=== PATIENT | female | born 1990 | race Caucasian/White ===

== ENCOUNTER 2021-04-30 12:44 | Observation (INO) | payer MEDICAID, OTHER ==
[~2021-04-30] VITALS: Ht 160 cm; Wt 108.7 kg
--- NOTE | 2021-04-30 13:23 | ED Respiratory ---
General Chief Complaint: COVID19 Suspect/Confirmed Stated Complaint: SOB,COUGH,CP Source: patient Exam Limitations: no limitations History of Present Illness Date Seen by Provider: Apr 30, 2021 Time Seen by Provider: 13:12 Initial Comments This is a well-appearing 31-year-old female who presented to the ER with complaints of increasing shortness of breath. States that she developed symptoms approximately 3 weeks ago and was giving a steroid pack. States that she has since completed the steroid pack however her symptoms have persisted and over the last 3 to 4 days have worsened. Denies fever, chills, cough, chest pain, nausea, vomiting, diarrhea, abdominal pain. Did not receive COVID vaccine. Allergies and Home Medications Allergies Coded Allergies: No Known Drug Allergies (Unverified , 04/30/21) Patient Home Medication List Home Medication List Reviewed: Yes Review of Systems Review of Systems Constitutional: no symptoms reported EENTM: no symptoms reported Respiratory: see HPI Cardiovascular: no symptoms reported Gastrointestinal: no symptoms reported Genitourinary: no symptoms reported Musculoskeletal: no symptoms reported Skin: no symptoms reported Psychiatric/Neurological: No Symptoms Reported Hematologic/Lymphatic: No Symptoms Reported Immunological/Allergic: no symptoms reported Past Cccvebf-Pqilxv-Ftwphl Hx Patient Social History Tobacco Use?: Yes Tobacco type used: Cigarettes Smoking Status: Current Everyday Smoker Substance use?: No Alcohol Use?: Yes Alcohol Frequency: Once in a while Pt feels they are or have been: No Physical Exam Vital Signs - First Documented 04/30/21 12:54 Temp 36.3 Pulse 100 Resp 36 B/P (MAP) 195/119 (144) Pulse Ox 97 O2 Delivery Nasal Cannula O2 Flow Rate 2.00 Capillary Refill : Height: '" Weight: lbs. oz. kg; BMI Method: General Appearance: WD/WN, no apparent distress Eyes: Bilateral Eye Normal Inspection, Bilateral Eye PERRL, Bilateral Eye EOMI HEENT: PERRL/EOMI, TMs normal Neck: full range of motion, normal inspection Progress/Results/Core Measures Suspected Sepsis SIRS Temperature: Pulse: Respiratory Rate: Laboratory Tests 04/30/21 13:05: White Blood Count 9.7 Blood Pressure / Mean: Laboratory Tests 04/30/21 13:05: Creatinine 0.81, INR Comment 0.9, Platelet Count 208, Total Bilirubin 0.6 Results/Orders Lab Results Laboratory Tests Test 04/30/21 13:00 04/30/21 13:05 04/30/21 13:50 04/30/21 14:00 Range/Units SARS-CoV-2 RNA (RT-PCR) Not Detected Not Detecte White Blood Count 9.7 4.3-11.0 10^3/uL Red Blood Count 4.44 3.80-5.11 10^6/uL Hemoglobin 15.1 11.5-16.0 g/dL Hematocrit 44 35-52 % Mean Corpuscular Volume 99 80-99 fL Mean Corpuscular Hemoglobin 34 25-34 pg Mean Corpuscular Hemoglobin Concent 34 32-36 g/dL Red Cell Distribution Width 13.5 10.0-14.5 % Platelet Count 208 130-400 10^3/uL Mean Platelet Volume 10.6 9.0-12.2 fL Immature Granulocyte % (Auto) 0 % Neutrophils (%) (Auto) 65 42-75 % Lymphocytes (%) (Auto) 15 12-44 % Monocytes (%) (Auto) 6 0-12 % Eosinophils (%) (Auto) 13 H 0-10 % Basophils (%) (Auto) 1 0-10 % Neutrophils # (Auto) 6.3 1.8-7.8 10^3/uL Lymphocytes # (Auto) 1.4 1.0-4.0 10^3/uL Monocytes # (Auto) 0.6 0.0-1.0 10^3/uL Eosinophils # (Auto) 1.2 H 0.0-0.3 10^3/uL Basophils # (Auto) 0.1 0.0-0.1 10^3/uL Immature Granulocyte # (Auto) 0.0 0.0-0.1 10^3/uL Neutrophils % (Manual) 60 % Lymphocytes % (Manual) 17 % Monocytes % (Manual) 7 % Eosinophils % (Manual) 15 % Band Neutrophils 1 % Blood Morphology Comment NORMAL Prothrombin Time 12.8 12.2-14.7 SEC INR Comment 0.9 0.8-1.4 Activated Partial Thromboplast Time 27 24-35 SEC D-Dimer <= 0.27 0.00-0.49 UG/ML Sodium Level 140 135-145 MMOL/L Potassium Level 4.2 3.6-5.0 MMOL/L Chloride Level 104 98-107 MMOL/L Carbon Dioxide Level 24 21-32 MMOL/L Anion Gap 12 5-14 MMOL/L Blood Urea Nitrogen 8 7-18 MG/DL Creatinine 0.81 0.60-1.30 MG/DL Estimat Glomerular Filtration Rate 81 BUN/Creatinine Ratio 10 Glucose Level 98 70-105 MG/DL Calcium Level 9.5 8.5-10.1 MG/DL Corrected Calcium 9.3 8.5-10.1 MG/DL Total Bilirubin 0.6 0.1-1.0 MG/DL Aspartate Amino Transf (AST/SGOT) 33 5-34 U/L Alanine Aminotransferase (ALT/SGPT) 38 0-55 U/L Alkaline Phosphatase 89 40-136 U/L Myoglobin 42.7 10.0-92.0 NG/ML Troponin I < 0.028 <0.028 NG/ML B-Type Natriuretic Peptide < 10.0 <100.0 PG/ML Total Protein 7.7 6.4-8.2 GM/DL Albumin 4.3 3.2-4.5 GM/DL Procalcitonin 0.02 <0.10 NG/ML Serum Test, Qualitative NEGATIVE NEGATIVE Blood Gas Puncture Site RRAD Blood Gas Patient Temperature 36.3 Arterial Blood pH 7.36 L 7.37-7.43 Arterial Blood Partial Pressure CO2 49 H 35-45 MMHG Arterial Blood Partial Pressure O2 43 L 79-93 MMHG Arterial Blood HCO3 28 H 23-27 MMOL/L Arterial Blood Total CO2 29.0 21.0-31.0 MMOL/L Arterial Blood Oxygen Saturation 70 L 94-100 % Arterial Blood Base Excess 2.4 -2.5-2.5 MMOL/L Jesus Test POS Blood Gas Ventilator Setting NO Blood Gas Inspired Oxygen 2L Urine Color YELLOW Urine Clarity CLEAR Urine pH 6.5 5-9 Urine Specific [place] 1.010 L 1.016-1.022 Urine Protein NEGATIVE NEGATIVE Urine Glucose (UA) NEGATIVE NEGATIVE Urine Ketones NEGATIVE NEGATIVE Urine Nitrite NEGATIVE NEGATIVE Urine Bilirubin NEGATIVE NEGATIVE Urine Urobilinogen 0.2 < = 1.0 MG/DL Urine Leukocyte Esterase 2+ H NEGATIVE Urine RBC (Auto) NEGATIVE NEGATIVE Urine RBC 0-2 /HPF Urine WBC 5-10 H /HPF Urine Squamous Epithelial Cells 2-5 /HPF Urine Crystals NONE /LPF Urine Bacteria MODERATE H /HPF Urine Casts NONE /LPF Urine Mucus NEGATIVE /LPF Urine Culture Indicated YES Test 04/30/21 15:50 Range/Units Blood Gas Puncture Site RRAD Blood Gas Patient Temperature 36.3 Arterial Blood pH 7.37 7.37-7.43 Arterial Blood Partial Pressure CO2 44 35-45 MMHG Arterial Blood Partial Pressure O2 82 79-93 MMHG Arterial Blood HCO3 25 23-27 MMOL/L Arterial Blood Total CO2 26.4 21.0-31.0 MMOL/L Arterial Blood Oxygen Saturation 96 94-100 % Arterial Blood Base Excess 0.2 -2.5-2.5 MMOL/L Jesus Test POS Blood Gas Ventilator Setting NO Blood Gas Inspired Oxygen 4L Micro Results Microbiology My Orders Orders - DENI [employer] REPRESENTATIVE Cbc With Automated Diff (04/30/21 13:17) Comprehensive Metabolic Panel (04/30/21 13:17) Sputum Culture (04/30/21 13:17) Urinalysis (04/30/21 13:17) Urine Culture (04/30/21 13:17) Protime With Inr (04/30/21 13:17) Partial Thromboplastin Time (04/30/21 13:17) Chest 1 View, Ap/Pa Only (04/30/21 13:17) Ed Iv/Invasive Line Start (04/30/21 13:17) Troponin I Ashlee (04/30/21 13:17) O2 (04/30/21 13:17) Remove Rings In Anticipation O (04/30/21 13:17) Myoglobin Serum (04/30/21 13:17) Monitor-Rhythm Ecg Trace Only (04/30/21 13:17) Bnp Ashlee (04/30/21 13:17) Fibrin Degradation Products (04/30/21 13:17) Arterial Blood Gas (04/30/21 13:24) Albuterol/Ipra Inhalation Soln (Duoneb I (04/30/21 13:30) Svn Small Volume Nebulizer (04/30/21 13:25) Manual Differential (04/30/21 13:05) Covid 19 Inhouse Test (04/30/21 14:08) Hcg,Qualitative Serum (04/30/21 14:08) Arterial Blood Gas (04/30/21 15:51) Methylprednisolone Sod Succ (Solu-Medrol (04/30/21 15:45) Albuterol/Ipra Inhalation Soln (Duoneb I (04/30/21 15:41) Ct Chest W (04/30/21 15:51) Albuterol Pre-Mix Nebs (Rt) (Proventil (04/30/21 16:00) Svn Small Volume Nebulizer (04/30/21 15:56) Ipratropium 0.02% Neb Solution (Atrovent (04/30/21 16:00) Arterial Blood Draw - Obtain (04/30/21 ) Iohexol Injection (Omnipaque 350 Mg/Ml 1 (04/30/21 16:30) Received Contrast (Hold Metformin- Contr (04/30/21 16:30) Ns (Ivpb) (Sodium Chloride 0.9% Ivpb Bag (04/30/21 16:30) Procalcitonin (Pct) (04/30/21 17:18) Medications Given in ED Current Medications Medications Dose Ordered Sig/Nayeli Route Start Time Stop Time Status Last Admin Dose Admin Albuterol Sulfate 15 mg ONCE ONCE INH 04/30/21 16:00 04/30/21 16:01 DC 04/30/21 16:01 15 MG Albuterol/ Ipratropium 3 ml ONCE ONCE INH 04/30/21 13:30 04/30/21 13:31 DC 04/30/21 15:53 3 ML Iohexol 100 ml ONCE ONCE IV 04/30/21 16:30 04/30/21 16:31 DC 04/30/21 18:10 74 ML Ipratropium Serafina 0.5 mg ONCE ONCE IH 04/30/21 16:00 04/30/21 16:01 DC 04/30/21 16:01 0.5 MG Methylprednisolone Sodium Succinate 125 mg ONCE ONCE IVP 04/30/21 15:45 04/30/21 15:46 DC 04/30/21 16:02 125 MG Sodium Chloride 100 ml ONCE ONCE IV 04/30/21 16:30 04/30/21 16:31 DC 04/30/21 18:10 80 ML Vital Signs/I&O 04/30/21 04/30/21 04/30/21 04/30/21 12:54 12:54 15:53 16:07 Temp 36.3 Pulse 100 Resp 36 B/P (MAP) 195/119 (144) Pulse Ox 97 97 96 98 O2 Delivery Nasal Cannula Nasal Cannula Nasal Cannula O2 Flow Rate 2.00 2.00 4.00 Capillary Refill : Departure Impression Primary Impression: Acute bronchiolitis Additional Impression: Hypoxemia [employer]I [employer] REPRESENTATIVE Apr 30, 2021 13:23
[2021-04-30] MEDS ORDERED: RT-ALBUTEROL/IPRATROPIUM 3 ML (DUONEB) VIAL INH ONE (13:30)
[2021-04-30 13:31] LABS: BASOPHILS # (AUTO) 0.1 10^3/uL (0.0-0.1); BASOPHILS % (AUTO) 1 % (0-10); EOSINOPHILS # (AUTO) 1.2 10^3/uL (0.0-0.3); EOSINOPHILS % (AUTO) 13 % (0-10); HEMATOCRIT 44 % (35-52); HEMOGLOBIN 15.1 g/dL (11.5-16.0); LYMPHOCYTES # (AUTO) 1.4 10^3/uL (1.0-4.0); LYMPHOCYTES % (AUTO) 15 % (12-44); MEAN CORPUSCULAR HEMOGLOBIN 34 pg (25-34); MEAN CORPUSCULAR HGB CONC 34 g/dL (32-36); MEAN CORPUSCULAR VOLUME 99 fL (80-99); MEAN PLATELET VOLUME 10.6 fL (9.0-12.2); MONOCYTES # (AUTO) 0.6 10^3/uL (0.0-1.0); MONOCYTES % (AUTO) 6 % (0-12); NEUTROPHILS # (AUTO) 6.3 10^3/uL (1.8-7.8); NEUTROPHILS % (AUTO) 65 % (42-75); PLATELET COUNT 208 10^3/uL (130-400); WHITE BLOOD COUNT 9.7 10^3/uL (4.3-11.0)
[2021-04-30 13:46] LABS: ALANINE AMINOTRANSFERASE 38 U/L (0-55); ALBUMIN 4.3 GM/DL (3.2-4.5); ALKALINE PHOSPHATASE 89 U/L (40-136); BILIRUBIN,TOTAL 0.6 MG/DL (0.1-1.0); BUN/CREATININE RATIO 10; CALCIUM 9.5 MG/DL (8.5-10.1); CARBON DIOXIDE 24 MMOL/L (21-32); CHLORIDE 104 MMOL/L (98-107); CREATININE SERUM 0.81 MG/DL (0.60-1.30); GFR ESTIMATED 81; GLUCOSE 98 MG/DL (70-105); POTASSIUM 4.2 MMOL/L (3.6-5.0); SODIUM 140 MMOL/L (135-145); TOTAL PROTEIN 7.7 GM/DL (6.4-8.2)
[2021-04-30 13:59] LABS: ABG BASE EXCESS 2.4 MMOL/L (-2.5-2.5); ABG OXYGEN SATURATION 70 % (94-100); ABG PCO2 49 MMHG (35-45); ABG PH 7.36 (7.37-7.43); ABG PO2 43 MMHG (79-93)
[2021-04-30 14:01] LABS: FIBRIN DEGRADATION PRODUCTS <= 0.27 UG/ML (0.00-0.49); INR 0.9 (0.8-1.4); PARTIAL THROMBOPLASTIN TIME 27 SEC (24-35); PROTHROMBIN TIME PATIENT 12.8 SEC (12.2-14.7)
[2021-04-30 14:06] LABS: ALLENS TEST POS; INSPIRED O2 2L; PATIENT TEMP 36.3; VENTILATOR NO
[2021-04-30 14:07] LABS: BAND NEUTROPHILS 1 %; EOSINOPHILS % (MANUAL) 15 %; LYMPHOCYTES % (MANUAL) 17 %; MONOCYTES % (MANUAL) 7 %; NEUTROPHILS % (MANUAL) 60 %; RBC MORPH NORMAL
[2021-04-30 14:31] LABS: BILIRUBIN,URINE NEGATIVE (NEGATIVE); CLARITY,URINE CLEAR; COLOR,URINE YELLOW; GLUCOSE, URINE (UA) NEGATIVE (NEGATIVE); KETONES,URINE NEGATIVE (NEGATIVE); LEUKOCYTE ESTERASE ,URINE 2+ (NEGATIVE); NITRITE,URINE NEGATIVE (NEGATIVE); PH,URINE 6.5 (5-9); PROTEIN,URINE NEGATIVE (NEGATIVE)
[2021-04-30 15:07] LABS: BACTERIA,URINE MODERATE /HPF; RBC,URINE 0-2 /HPF
--- NOTE | 2021-04-30 15:36 | Diagnostic Imaging Report ---
Clinical indications: Patient with shortness of breath. Patient with low oxygen saturations on room air. Patient has been sick for 3 weeks. Exam: Portable chest x-ray upright view. Comparisons: None. Findings: Lungs/pleura: Lungs are clear. There is no pneumothorax. There is no pleural effusion. Mediastinum: Unremarkable. Pulmonary vasculature: Unremarkable. Heart: Unremarkable. Bones/extrathoracic soft tissue: Unremarkable. Impression: There is no radiographic evidence of acute cardiopulmonary process. Dictated by: Dictated on workstation # [id number]
[2021-04-30] MEDS ORDERED: RT-ALBUTEROL/IPRATROPIUM 3 ML (DUONEB) VIAL ONE (15:41)
[2021-04-30] MEDS ORDERED: methylPREDNISolone 125 MG (Solu-MEDROL) VIAL IVP ONE (15:45)
[2021-04-30 16:00] LABS: ABG BASE EXCESS 0.2 MMOL/L (-2.5-2.5); ABG OXYGEN SATURATION 96 % (94-100); ABG PCO2 44 MMHG (35-45); ABG PH 7.37 (7.37-7.43); ABG PO2 82 MMHG (79-93); ABG TCO2 26.4 MMOL/L (21.0-31.0)
[2021-04-30] MEDS ORDERED: RT-IPRATROPIUM (ATROVENT) 0.5MG/2.5ML AMP IH ONE (16:00)
[2021-04-30] MEDS ORDERED: RT-ALBUTEROL SULF 2.5 MG/3 ML PRE-MIX VIAL INH ONE (16:00)
[2021-04-30 16:01] LABS: ALLENS TEST POS; INSPIRED O2 4L; PATIENT TEMP 36.3; VENTILATOR NO
[2021-04-30] MEDS ORDERED: NS 100 ML (IVPB) BAG IV ONE (16:30)
[2021-04-30] MEDS ORDERED: HOLD METFORMIN - RECEIVED CONTRAST 20 ML VIAL IV SCH (16:30)
[2021-04-30] MEDS ORDERED: IOHEXOL 350 MG/ML 100 ML (OMNIPAQUE 350) VIAL IV ONE (16:30)
--- NOTE | 2021-04-30 18:23 | Diagnostic Imaging Report ---
PROCEDURE: CT chest with contrast only. TECHNIQUE: Multiple contiguous axial images were obtained through the chest after administration of intravenous contrast. Auto Exposure Controls were utilized during the CT exam to meet ALARA standards for radiation dose reduction. DATE: April 30, 2021. COMPARISON: Chest radiograph April 30, 2021. INDICATION: 31-year-old female, shortness of breath and cough. Hypoxia. FINDINGS: There are small areas of scattered patchy multifocal alveolar consolidation. There is no pneumothorax. There is no pleural effusion. The central airways are patent. The heart is not enlarged. There is no pericardial effusion. There is no identified central pulmonary embolus. There is nondiagnostic assessment for segmental and subsegmental pulmonary emboli given the timing of the contrast bolus. There is no identified abnormally enlarged mediastinal, hilar, or axillary lymph node meeting CT size criteria for adenopathy. There is a low-attenuation thyroid nodule measuring 6 mm in size in the inferior aspect of the thyroid on axial image 17. The imaged portions of the upper abdomen are unremarkable. There is no identified acute bony abnormality. IMPRESSION: CT CHEST. 1. Multifocal patchy areas of alveolar consolidation highly suggestive of COVID 19 infection and multifocal pneumonia/pneumonitis. Other causes of multifocal pneumonia and pneumonitis are also in the differential diagnosis. Dictated by: Dictated on workstation # [id number]
[2021-04-30 20:00] VITALS: BP 173/88
[2021-04-30] MEDS ORDERED: HYDR-700 PO (20:16)
[2021-04-30] MEDS ORDERED: DESV50TA18 PO (20:16)
[2021-04-30] MEDS ORDERED: RT-ALBUTEROL SULF 2.5 MG/3 ML PRE-MIX VIAL INH PRN (20:30)
[2021-04-30] MEDS ORDERED: CETI10TA17 PO (20:58)
[2021-04-30] MEDS ORDERED: ONDANSETRON 4 MG/2 ML (SDV) Z0FRAN IV PRN (21:30)
[2021-04-30] MEDS ORDERED: CATHETER FLUSH 10 ML SYR IV PRN (21:30)
[2021-04-30] MEDS: methylPREDNISolone 125 MG (Solu-MEDROL) VIAL IV SCH (21:48)
[2021-04-30] MEDS: CATHETER FLUSH 10 ML SYR IV SCH (21:48)
[2021-04-30] MEDS: cefTRIAXone 1 GM/50 ML (PRE-MIX) IV SCH (21:48)
[2021-04-30] MEDS: ACETAMINOPHEN 325 MG TABLET PO PRN (21:48)
[2021-04-30] MEDS ORDERED: amLODIPine 5 MG (NORVASC) TAB PO ONE (22:15)
[2021-04-30] MEDS ORDERED: hydrOXYzine (VISTARIL/ATARAX) 25 MG capsule/tablet PO SCH (22:30)
[2021-04-30] MEDS: VENlafaxine XR 75 MG (EFFEXOR XR) CAP PO SCH (23:25)
[2021-04-30] MEDS: LORATADINE (CLARITIN) 10 MG TAB PO SCH (23:25)
[2021-05-01] VITALS: BP 161/95
[2021-05-01 03:45] VITALS: BP_SYST 162; BP_SYST 163; BP_DIAS 104; BP_DIAS 88
[2021-05-01] MEDS: methylPREDNISolone 125 MG (Solu-MEDROL) VIAL IV SCH (04:36)
[2021-05-01] MEDS: CATHETER FLUSH 10 ML SYR IV SCH ×3 (04:37→20:07)
[2021-05-01 05:55] LABS: BASOPHILS % (AUTO) 0 % (0-10); EOSINOPHILS % (AUTO) 0 % (0-10); HEMATOCRIT 40 % (35-52); LYMPHOCYTES # (AUTO) 0.8 10^3/uL (1.0-4.0); LYMPHOCYTES % (AUTO) 6 % (12-44); MEAN CORPUSCULAR HEMOGLOBIN 34 pg (25-34); MEAN CORPUSCULAR HGB CONC 35 g/dL (32-36); MEAN CORPUSCULAR VOLUME 98 fL (80-99); MEAN PLATELET VOLUME 10.8 fL (9.0-12.2); MONOCYTES # (AUTO) 0.2 10^3/uL (0.0-1.0); MONOCYTES % (AUTO) 1 % (0-12); NEUTROPHILS # (AUTO) 11.9 10^3/uL (1.8-7.8); NEUTROPHILS % (AUTO) 92 % (42-75); PLATELET COUNT 193 10^3/uL (130-400)
[2021-05-01] MEDS ORDERED: RT-ALBUTEROL/IPRATROPIUM 3 ML (DUONEB) VIAL INH SCH (06:00)
[2021-05-01 06:06] LABS: POTASSIUM 4.1 MMOL/L (3.6-5.0)
[2021-05-01 06:07] LABS: CALCIUM 9.3 MG/DL (8.5-10.1)
[2021-05-01 06:12] LABS: CREATININE SERUM 0.66 MG/DL (0.60-1.30)
[2021-05-01 07:35] VITALS: BP 152/89
--- NOTE | 2021-05-01 09:45 | History & Physical ---
HPI History of Present Illness: Allergies since January- having severe drainage, red ears, coughing, felt like she had bronchitis. Saw SRAVANTHI at [facility] and they thought she had bronchitis, continued inhaler and gave her prednisone and she was better for a couple of weeks. She has had an inhaler since around when she was real ly sick with similar symptoms and was negative for COVID, influenza and strep. Her kids did end up testing positive for COVID a couple of weeks later. Then got worse right before Thanksgi. Went to walk-in last week due to really not being able to breathe, got breathing treatment and prednisone, about a day after she got off of prednisone it was just as bad. 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 Source: patient Date seen by provider: May 01, 2021 Time Seen by Provider: 09:43 Attending Physician Alyssa Jain MD PCP [facility] Consult Date of Admission Apr 30, 2021 at 18:08 Home Medications Home Medications Reviewed patient Home Medication Reconciliation performed by pharmacy medication reconciliations calibration laboratory technician and/or nursing. Patients Allergies have been reviewed. Allergies Coded Allergies: No Known Drug Allergies (Unverified , 04/30/21) [id number]-Onqzaz-Njsnug Hx Patient Social History Smoking Status: Current Everyday Smoker Alcohol Use?: Yes (couple of beers per week) Tobacco type used: Cigarettes Have you traveled recently?: No Immunizations Up To Date Influenza Vaccine Up-to-Date: No; Not Current Past Medical History PMHx: Denies SurgHx: Tonsillectomy Tubal ligation Endometrial ablation Family Medical History Significant Family History: Cancer (aunt of lung cancer), Renal Disease (Mother with FSGS) Review of Systems ([facility]) Constitutional: No fever EENTM: nose congestion; No throat pain Respiratory: cough, short of breath, wheezing Cardiovascular: chest pain (tightness) Gastrointestinal: No abdominal pain, No constipation, No diarrhea, No nausea, No vomiting Genitourinary: No dysuria Musculoskeletal: joint pain (chronic); No muscle pain Skin: No rash Psychiatric/Neurological: Denies Anxiety, Denies Depressed Reviewed Test Results Reviewed Test Results Lab Laboratory Tests Test 04/30/21 13:00 04/30/21 13:05 04/30/21 13:50 04/30/21 14:00 Range/Units SARS-CoV-2 RNA (RT-PCR) Not Detected Not Detecte White Blood Count 9.7 4.3-11.0 10^3/uL Red Blood Count 4.44 3.80-5.11 10^6/uL Hemoglobin 15.1 11.5-16.0 g/dL Hematocrit 44 35-52 % Mean Corpuscular Volume 99 80-99 fL Mean Corpuscular Hemoglobin 34 25-34 pg Mean Corpuscular Hemoglobin Concent 34 32-36 g/dL Red Cell Distribution Width 13.5 10.0-14.5 % Platelet Count 208 130-400 10^3/uL Mean Platelet Volume 10.6 9.0-12.2 fL Immature Granulocyte % (Auto) 0 % Neutrophils (%) (Auto) 65 42-75 % Lymphocytes (%) (Auto) 15 12-44 % Monocytes (%) (Auto) 6 0-12 % Eosinophils (%) (Auto) 13 H 0-10 % Basophils (%) (Auto) 1 0-10 % Neutrophils # (Auto) 6.3 1.8-7.8 10^3/uL Lymphocytes # (Auto) 1.4 1.0-4.0 10^3/uL Monocytes # (Auto) 0.6 0.0-1.0 10^3/uL Eosinophils # (Auto) 1.2 H 0.0-0.3 10^3/uL Basophils # (Auto) 0.1 0.0-0.1 10^3/uL Immature Granulocyte # (Auto) 0.0 0.0-0.1 10^3/uL Neutrophils % (Manual) 60 % Lymphocytes % (Manual) 17 % Monocytes % (Manual) 7 % Eosinophils % (Manual) 15 % Band Neutrophils 1 % Blood Morphology Comment NORMAL Prothrombin Time 12.8 12.2-14.7 SEC INR Comment 0.9 0.8-1.4 Activated Partial Thromboplast Time 27 24-35 SEC D-Dimer <= 0.27 0.00-0.49 UG/ML Sodium Level 140 135-145 MMOL/L Potassium Level 4.2 3.6-5.0 MMOL/L Chloride Level 104 98-107 MMOL/L Carbon Dioxide Level 24 21-32 MMOL/L Anion Gap 12 5-14 MMOL/L Blood Urea Nitrogen 8 7-18 MG/DL Creatinine 0.81 0.60-1.30 MG/DL Estimat Glomerular Filtration Rate 81 BUN/Creatinine Ratio 10 Glucose Level 98 70-105 MG/DL Calcium Level 9.5 8.5-10.1 MG/DL Corrected Calcium 9.3 8.5-10.1 MG/DL Total Bilirubin 0.6 0.1-1.0 MG/DL Aspartate Amino Transf (AST/SGOT) 33 5-34 U/L Alanine Aminotransferase (ALT/SGPT) 38 0-55 U/L Alkaline Phosphatase 89 40-136 U/L Myoglobin 42.7 10.0-92.0 NG/ML Troponin I < 0.028 <0.028 NG/ML B-Type Natriuretic Peptide < 10.0 <100.0 PG/ML Total Protein 7.7 6.4-8.2 GM/DL Albumin 4.3 3.2-4.5 GM/DL Procalcitonin 0.02 <0.10 NG/ML Serum Test, Qualitative NEGATIVE NEGATIVE Blood Gas Puncture Site RRAD Blood Gas Patient Temperature 36.3 Arterial Blood pH 7.36 L 7.37-7.43 Arterial Blood Partial Pressure CO2 49 H 35-45 MMHG Arterial Blood Partial Pressure O2 43 L 79-93 MMHG Arterial Blood HCO3 28 H 23-27 MMOL/L Arterial Blood Total CO2 29.0 21.0-31.0 MMOL/L Arterial Blood Oxygen Saturation 70 L 94-100 % Arterial Blood Base Excess 2.4 -2.5-2.5 MMOL/L Jesus Test POS Blood Gas Ventilator Setting NO Blood Gas Inspired Oxygen 2L Urine Color YELLOW Urine Clarity CLEAR Urine pH 6.5 5-9 Urine Specific [place] 1.010 L 1.016-1.022 Urine Protein NEGATIVE NEGATIVE Urine Glucose (UA) NEGATIVE NEGATIVE Urine Ketones NEGATIVE NEGATIVE Urine Nitrite NEGATIVE NEGATIVE Urine Bilirubin NEGATIVE NEGATIVE Urine Urobilinogen 0.2 < = 1.0 MG/DL Urine Leukocyte Esterase 2+ H NEGATIVE Urine RBC (Auto) NEGATIVE NEGATIVE Urine RBC 0-2 /HPF Urine WBC 5-10 H /HPF Urine Squamous Epithelial Cells 2-5 /HPF Urine Crystals NONE /LPF Urine Bacteria MODERATE H /HPF Urine Casts NONE /LPF Urine Mucus NEGATIVE /LPF Urine Culture Indicated YES Test 04/30/21 15:50 05/01/21 05:20 Range/Units Blood Gas Puncture Site RRAD Blood Gas Patient Temperature 36.3 Arterial Blood pH 7.37 7.37-7.43 Arterial Blood Partial Pressure CO2 44 35-45 MMHG Arterial Blood Partial Pressure O2 82 79-93 MMHG Arterial Blood HCO3 25 23-27 MMOL/L Arterial Blood Total CO2 26.4 21.0-31.0 MMOL/L Arterial Blood Oxygen Saturation 96 94-100 % Arterial Blood Base Excess 0.2 -2.5-2.5 MMOL/L Jesus Test POS Blood Gas Ventilator Setting NO Blood Gas Inspired Oxygen 4L White Blood Count 13.0 H 4.3-11.0 10^3/uL Red Blood Count 4.13 3.80-5.11 10^6/uL Hemoglobin 14.0 11.5-16.0 g/dL Hematocrit 40 35-52 % Mean Corpuscular Volume 98 80-99 fL Mean Corpuscular Hemoglobin 34 25-34 pg Mean Corpuscular Hemoglobin Concent 35 32-36 g/dL Red Cell Distribution Width 13.2 10.0-14.5 % Platelet Count 193 130-400 10^3/uL Mean Platelet Volume 10.8 9.0-12.2 fL Immature Granulocyte % (Auto) 1 % Neutrophils (%) (Auto) 92 H 42-75 % Lymphocytes (%) (Auto) 6 L 12-44 % Monocytes (%) (Auto) 1 0-12 % Eosinophils (%) (Auto) 0 0-10 % Basophils (%) (Auto) 0 0-10 % Neutrophils # (Auto) 11.9 H 1.8-7.8 10^3/uL Lymphocytes # (Auto) 0.8 L 1.0-4.0 10^3/uL Monocytes # (Auto) 0.2 0.0-1.0 10^3/uL Eosinophils # (Auto) 0.0 0.0-0.3 10^3/uL Basophils # (Auto) 0.0 0.0-0.1 10^3/uL Immature Granulocyte # (Auto) 0.1 0.0-0.1 10^3/uL Sodium Level 138 135-145 MMOL/L Potassium Level 4.1 3.6-5.0 MMOL/L Chloride Level 104 98-107 MMOL/L Carbon Dioxide Level 20 L 21-32 MMOL/L Anion Gap 14 5-14 MMOL/L Blood Urea Nitrogen 8 7-18 MG/DL Creatinine 0.66 0.60-1.30 MG/DL Estimat Glomerular Filtration Rate 103 BUN/Creatinine Ratio 12 Glucose Level 155 H 70-105 MG/DL Calcium Level 9.3 8.5-10.1 MG/DL Radiology 04/30/21 CT CHEST. 1. Multifocal patchy areas of alveolar consolidation highly suggestive of COVID 19 infection and multifocal pneumonia/pneumonitis. Other causes of multifocal pneumonia and pneumonitis are also in the differential diagnosis. Physical Exam-([facility]) Physical Exam Vital Signs VS - Last 72 Hours, by Label 04/30/21 04/30/21 04/30/21 04/30/21 12:54 12:54 15:53 16:07 Temp 36.3 Pulse 100 Resp 36 B/P (MAP) 195/119 (144) Pulse Ox 97 97 96 98 O2 Delivery Nasal Cannula Nasal Cannula Nasal Cannula O2 Flow Rate 2.00 2.00 4.00 04/30/21 04/30/21 04/30/21 04/30/21 19:34 20:00 20:05 20:21 Temp 37.3 36.1 36.3 Pulse 111 108 100 Resp 18 24 B/P (MAP) 137/91 173/88 (116) Pulse Ox 93 95 95 2 O2 Delivery Nasal Cannula Nasal Cannula Nasal Cannula O2 Flow Rate 2.00 4.00 4.00 04/30/21 05/01/21 05/01/21 05/01/21 20:39 00:00 03:45 07:35 Temp 36.6 36.5 36.1 Pulse 87 98 81 Resp 20 22 22 B/P (MAP) 161/95 (117) 162/88 (112) 152/89 (110) Pulse Ox 94 96 94 O2 Delivery Nasal Cannula Nasal Cannula Nasal Cannula Nasal Cannula O2 Flow Rate 4.00 4.00 4.00 05/01/21 05/01/21 05/01/21 05/01/21 08:00 08:02 11:39 12:19 Temp 36.4 Pulse 116 Resp 20 B/P (MAP) 158/86 (110) Pulse Ox 95 97 95 O2 Delivery Nasal Cannula Nasal Cannula Nasal Cannula Nasal Cannula O2 Flow Rate 4.00 4.00 4.00 3.00 Capillary Refill : Less Than 3 Seconds General Appearance: WD/WN, no apparent distress Respiratory: wheezing (end expiratory) Cardiovascular: regular rate, rhythm, no murmur Gastrointestinal: normal bowel sounds, non tender, soft Extremities: no pedal edema Neurologic/Psychiatric: alert, normal mood/affect Skin: normal color, warm/dry Assessment/Plan Assessment/Plan Admission Status: Observation (1) Respiratory failure Status: Acute Assessment & Plan: 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 Currently requiring 4 lpm supplemental oxygen. Will check COVID19 antibodies given history. No clear bacterial infection in lungs. CTA without clear PE although nondiagnostic for segmental/subsegmental however D dimer also normal, so low suspicion of PE. Qualifiers: Qualified Codes: J96.01 - Acute respiratory failure with hypoxia (2) Wheezing Status: Acute Assessment & Plan: Without prior diagnosis of asthma or COPD, will transition from IV steroids to oral taper, wean supplemental oxygen as tolerated. Duonebs QID. (3) Depression Status: Chronic Assessment & Plan: Resumed home meds (4) UTI (urinary tract infection) Status: Acute Assessment & Plan: Culture with E coli, sensitivity pending. Ceftriaxone. Qualifiers: Qualified Codes: N30.00 - Acute cystitis without hematuria (5) DVT prophylaxis Status: Acute Assessment & Plan: Enoxaparin ALYSSA JAIN MD May 01, 2021 09:45
[2021-05-01] MEDS ORDERED: RT-ALBUINH INH (09:57)
[2021-05-01] MEDS: predniSONE 20 MG TAB PO SCH (10:58)
[2021-05-01] MEDS: RT-ALBUTEROL/IPRATROPIUM 3 ML (DUONEB) VIAL INH SCH ×3 (11:38→20:26)
[2021-05-01 12:19] VITALS: BP 158/86
[2021-05-01] MEDS: hydrOXYzine (VISTARIL/ATARAX) 25 MG capsule/tablet PO PRN ×2 (13:56→20:07)
[2021-05-01] MEDS ORDERED: ACET-2267 PO (14:05)
[2021-05-01] MEDS: ENOXAPARIN 40 MG/0.4 ML (LOVENOX) SYR SQ SCH (15:20)
[2021-05-01 15:59] VITALS: BP 152/90
[2021-05-01] MEDS ORDERED: CALCIUM CARBONATE 500 MG (TUMS) TAB.CHEW PO PRN (16:45)
[2021-05-01] MEDS: cefTRIAXone 1 GM/50 ML (PRE-MIX) IV SCH (20:06)
[2021-05-01] MEDS: VENlafaxine XR 75 MG (EFFEXOR XR) CAP PO SCH (20:06)
[2021-05-01] MEDS: LORATADINE (CLARITIN) 10 MG TAB PO SCH (20:06)
[2021-05-01] MEDS: ACETAMINOPHEN 325 MG TABLET PO PRN (20:14)
[2021-05-01 20:27] VITALS: BP 145/82
[2021-05-02 00:25] VITALS: BP 152/98
[2021-05-02] MEDS: ENOXAPARIN 40 MG/0.4 ML (LOVENOX) SYR SQ SCH (04:31)
[2021-05-02 04:40] VITALS: BP 144/93
[2021-05-02] MEDS: CATHETER FLUSH 10 ML SYR IV SCH (05:39)
[2021-05-02] MEDS: RT-ALBUTEROL/IPRATROPIUM 3 ML (DUONEB) VIAL INH SCH ×2 (07:31→10:37)
[2021-05-02] MEDS: predniSONE 20 MG TAB PO SCH (08:15)
[2021-05-02 08:18] VITALS: BP 160/106
[2021-05-02] MEDS ORDERED: PRD10T PO (10:35)
[2021-05-02] MEDS ORDERED: CEFD300C3 PO (10:35)
[2021-05-02] MEDS ORDERED: HYDR25TA4 PO (10:35)
[2021-05-02] MEDS ORDERED: RT-ALBUINH INH (10:37)
[2021-05-02 11:13] VITALS: BP 147/92
--- NOTE | 2021-05-02 12:10 | Discharge Summary ---
Discharge Summary Hospital Course Problems/Diagnosis: (1) Respiratory failure Status: Acute Assessment & Plan: 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 Currently requiring 4 lpm supplemental oxygen. COVID19 antibodies negative. No clear bacterial infection in lungs. CTA without clear PE although nondiagnostic for segmental/subsegmental however D dimer also normal, so low suspicion of PE. Pulmonology consulted, suspect combination of postnasal drip, allergic reactive airway disease and GERD, recommended aggressive treatment of all 3- PPI x 2 months, nasal saline for postnasal drip (nasal steroids if not responding) and inhaled corticosteroid Advair or Symbicort for 4-6 weeks and continue albuterol regularly for 4-7 days. Try to get peak flow meter and monitor outpatient to find triggers, etc. Check PFTs in about 6 weeks. Qualifiers: Qualified Codes: J96.01 - Acute respiratory failure with hypoxia (2) Wheezing Status: Acute Assessment & Plan: Without prior diagnosis of asthma or COPD, transitioned from IV to oral steroids. See above. Encouraged smoking cessation. (3) Depression Status: Chronic Assessment & Plan: Resumed home meds (4) UTI (urinary tract infection) Status: Acute Assessment & Plan: Culture with E coli, sensitivity pending. Ceftriaxone given in patient, discharged with cefdinir. Qualifiers: Qualified Codes: N30.00 - Acute cystitis without hematuria Hospital Course Date of Admission: Apr 30, 2021 at 18:08 Admission Diagnosis : Reactive airway disease with exacerbation Urinary tract infection [facility] Date of Discharge: 05/02/21 Discharge Diagnosis: See problem list Hospital Course: See problem list Labs and Pending Lab Test: Microbiology 04/30/21 Urine Culture - Final, Complete Escherichia coli Mixed Bacterial Mary Home Meds Active Cefdinir 300 Mg Capsule 300 Mg PO BID Prednisone 10 Mg Tab 0 PO UD Take 6 tabs(60mg)daily, decrease by 1 tab(10mg) every other day. Hydrochlorothiazide 25 Mg Tablet 25 Mg PO DAILY Advair Diskus 250 mcg/50 mcg 1 puff BID Omeprazole 20 mg daily Reported Proventil Hfa (Albuterol Sulfate) 6.7 Gm Hfa.aer.ad 2 Puff INH Q6H Tylenol Extra Strength (Acetaminophen) 500 Mg Tablet 1,000 Mg PO Q8H PRN Cetirizine HCl 10 Mg Tablet 10 Mg PO HS Hydroxyzine HCl 25 Mg Tablet 25-50 Mg PO HS TAKES 1 TO 2 (25MG) TABS Desvenlafaxine Succinate ER (Desvenlafaxine Succinate) 50 Mg Tab.er.24h 50 Mg PO HS Assessment/Pt DC Instructions Follow up with primary provider within a week of discharge. Discharge Diet: Regular Diet Activity as Tolerated: Yes Discharge Physical Examination Allergies: Coded Allergies: sertraline (Verified Allergy, Unknown, 05/01/21) sulfamethoxazole (Verified Allergy, Unknown, Nausea, 05/01/21) trimethoprim (Verified Allergy, Unknown, Nausea, 05/01/21) General Appearance: No Apparent Distress, WD/WN Respiratory: No Respiratory Distress; Wheezing Cardiovascular: Regular Rate, Rhythm, No Murmur Skin: Normal Color, Warm/Dry Neurologic/Psychiatric: Alert, Normal Mood/Affect KARI QUEZADA MD May 02, 2021 12:10
--- NOTE | 2021-05-02 14:22 | Pulmonary Consultation ---
History of Present Illness History of Present Illness Date Seen by Provider: May 02, 2021 Time Seen by Provider: 13:57 Date of Admission Allergies and Home Medications Allergies Coded Allergies: sertraline (Verified Allergy, Unknown, 05/01/21) sulfamethoxazole (Verified Allergy, Unknown, Nausea, 05/01/21) trimethoprim (Verified Allergy, Unknown, Nausea, 05/01/21) Home Medications Acetaminophen 500 Mg Tablet, 1,000 MG PO Q8H PRN for PAIN-MILD (1-4), (Reported) Albuterol Sulfate 6.7 Gm Hfa.aer.ad, 2 PUFF INH Q6H, (Reported) Cefdinir 300 Mg Capsule, 300 MG PO BID Prescribed by: KARI QUEZADA on 05/02/21 1035 Cetirizine HCl 10 Mg Tablet, 10 MG PO HS, (Reported) Desvenlafaxine Succinate 50 Mg Tab.er.24h, 50 MG PO HS, (Reported) Hydrochlorothiazide 25 Mg Tablet, 25 MG PO DAILY Prescribed by: KARI QUEZADA on 05/02/21 1035 Hydroxyzine HCl 25 Mg Tablet, 25-50 MG PO HS, (Reported) TAKES 1 TO 2 (25MG) TABS Prednisone 10 Mg Tab, 0 PO UD Take 6 tabs(60mg)daily, decrease by 1 tab(10mg) every other day. Prescribed by: KARI QUEZADA on 05/02/21 1035 Past Medical/Social/Family Hx Patient Social History Tobacco Use?: Yes Tobacco type used: Cigarettes Smoking Status: Current Everyday Smoker Smokeless Tobacco Frequency: Never a User Use of E-Cig and/or Vaping dev: No Substance use?: No Alcohol Use?: Yes (couple of beers per week) Alcohol type: Hard Liquor Alcohol Frequency: Couple times a week Pt stated abuse/neglect: No Immunizations Up To Date Influenza Vaccine Up-to-Date: No; Not Current Current Status status: No Advance Directives: No Communicates: Verbally Primary Language: Uzbek Preferred Spoken Language: Uzbek Is interpretation needed?: No Sensory deficits: Vision impairment Implanted or Applied Medical D: None Past Medical History PMHx: Denies SurgHx: Tonsillectomy Tubal ligation Endometrial ablation Review of Systems Constitutional: see HPI Sepsis Event Evaluation Height, Weight, BMI Height: '" Weight: lbs. oz. kg; 42.46 BMI Method: Exam Exam Patient acknowledged, consented, and participated in this virtual visit which was conducted using real time audio/video Vital Signs Date Time Temp Pulse Resp B/P (MAP) Pulse Ox O2 Delivery O2 Flow Rate FiO2 05/02/21 11:13 36.2 95 20 147/92 (110) 93 Room Air 05/02/21 10:37 94 Nasal Cannula 05/02/21 08:50 35.9 93 16 97 Nasal Cannula 3.00 05/02/21 08:18 160/106 (124) 05/02/21 08:00 Nasal Cannula 3.00 05/02/21 07:32 96 Nasal Cannula 3.00 05/02/21 04:40 37.0 105 20 144/93 (110) 98 Nasal Cannula 3.00 05/02/21 00:25 36.8 102 20 152/98 (116) 97 Nasal Cannula 3.00 05/01/21 20:27 36.5 95 22 145/82 (103) 97 Nasal Cannula 3.00 05/01/21 20:26 95 Nasal Cannula 3.00 05/01/21 20:00 Nasal Cannula 4.00 05/01/21 15:59 37.1 96 22 152/90 (110) 95 Nasal Cannula 3.00 05/01/21 15:09 96 Nasal Cannula 4.00 I & O 05/02/21 07:00 Intake Total 3030 ml Balance 3030 ml Height & Weight Height: '" Weight: lbs. oz. kg; 42.46 BMI Method: General Appearance: No Apparent Distress Capillary Refill: Less Than 3 Seconds Gastrointestinal: normal bowel sounds, non tender, soft Results Lab Laboratory Tests 05/01/21 05:20 Assessment/Plan Assessment/Plan admitted with dyspnea , cough , dyspnea tx with steroids and ABX for uti consult requested by PCP for derqyent / persistent symptoms as above Seen in room with RN , via [employer] card BASELINE - yearly bronchitis since teenage , tx with steroids recovbered - PNA 2016 - hospitalization -2 prednisone courses last year Baseline some limitations with activity never measured peak flow occasional use MDI , nonebulizer at home persistent issues with PND/ possible allergic rhinitis while exposed to farm No sensitivity to ASA significant GERD - on OTC meds daily + environmental allergies. No previous PFT Smoker , is smoker too tobacco exposure family history of lung dizease - COPD , lung CA +dog in the house, No birds at house No exposure to mold, hot tubs, aerosols No h/o DVT /PE minimal snoring Weight - steady gaining No change in living arrangements lately Asthma exacerbation ( Precipitated by viral and bacterial infections, GERD, PND ) -to finish ABX -Steroids po , agree with taper -Aggressive bronchodilators, pulmonary toilet- would cont albuterol MDI 2-4 puffs tid - qid scheduled for 1-2 weeks , then PRN . Alternatively Might benefit form nebuliser tis- qid scheduled for 1-2 weeks , then PRN, , Alternatively albuterol MDI 2-4 puffs tid ( if problems with obtaining nebs -start on ICS/LABA - advair or symbiort - higher doses - 6-8 weeks -Tx GERD - advised PPI 8 weeks - then if GERD persist - see GI -Tx Nasal congestion with nasal saline spray ( would hold on nasal steroids-> next step, Antihistamine-decongestant therapy may be effective in reducing nasal discharge will need PFT inb 6-8 weeks and reviewe meds regiment Cough - sounds as combination of PND and GERD. Can not r/o component of airway hyperreactivity or nonasthmatic eosinophilic bronchitis. Might need sputum eosinophills then Worsening of cough at night can be worse due to CORY -low on diff list now- monitor weight loss advised discussed cessation of tobacco Questions/concerns were discussed with patient and family by bedside thank you BEVERLEY BRUNO MD May 02, 2021 14:22
[2021-05-02] MEDS ORDERED: OMEP20TA7 PO (14:36)
[2021-05-02] MEDS ORDERED: FLUT1DIS26 IH (14:36)
== END 2021-05-02 15:43 | disposition home or self-care (01) ==
LOC: ER 12:46 → 4TH 18:08
PROVIDERS: ADMIT Family Medicine; ATTEND Family Medicine
DX: J96.01 Acute respiratory failure with hypoxia (principal); J45.901 Unspecified asthma with (acute) exacerbation; J21.9 Acute bronchiolitis, unspecified; N30.00 Acute cystitis without hematuria; F32.A Depression, unspecified; F17.210 Nicotine dependence, cigarettes, uncomplicated; Z79.2 Long term (current) use of antibiotics; Z80.1 Family history of malignant neoplasm of trachea, bronchus and lung; Z20.822 Contact with and (suspected) exposure to COVID-19; Z79.899 Other long term (current) drug therapy
CPT/HCPCS: 36415; 36600; 71045; 71260; 80048; 80053; 81000; 82805; 83874; 83880; 84145; 84484; 84703; 85007; 85025; 85027; 85379; 85610; 85730; 86769; 87077; 87088; 87186; 87636; 93041; 94640; 94644; 94760; 94761; 99291; G0378